=== PATIENT | female | born 1970 | race Caucasian/White ===

== ENCOUNTER → 2016-05-10 | Outpatient (CLI) | payer BC ==
[~2016-05-10] MED LIST: CHOL1000 PO; DICY10CA12 PO; FERR325T PO; IMT100 PO; LACTTAB5 PO; OMEP40CA41 PO; TOPI50TA16 PO; TPM/50 PO; VORT10TA12 PO; ZNTT/150 PO
[2016-05-10 19:37] LABS: INFLUENZA A PCR Neg for Influ A (NEG); INFLUENZA B PCR Neg for Influ B (NEG)
== END | disposition home or self-care (01) ==
LOC: C.LABBC 14:20
PROVIDERS: ATTEND Family Medicine
DX: Z00.00 Encounter for general adult medical examination without abnormal findings (principal); J02.9 Acute pharyngitis, unspecified

== ENCOUNTER → 2016-05-11 | Outpatient (CLI) | payer BC ==
[2016-05-11 12:03] LABS: HEMATOCRIT 39.5 % (37-47); MEAN CORPUSCULAR HEMOGLOBIN 32.1 pg (25-34); MEAN CORPUSCULAR HGB CONC 34.2 g/dl (32-36); MEAN PLATELET VOLUME 10.8 fL (7.4-10.4); PLATELET COUNT 267 K/uL (130-400); WHITE BLOOD COUNT 12.75 K/uL (4.8-10.8)
[2016-05-11 12:15] LABS: BLOOD UREA NITROGEN 18 mg/dl (7-18); BUN/CREATININE RATIO 18.3 (10-20); CALCIUM 8.8 mg/dl (8.5-10.1); CARBON DIOXIDE 27 mmol/L (21-32); CHLORIDE 104 mmol/L (98-107); CHOLESTEROL 181 mg/dl (0-200); GLUCOSE 87 mg/dl (70-99); POTASSIUM 3.6 mmol/L (3.5-5.1); SODIUM 138 mmol/L (136-145); TRIGLYCERIDES 55 mg/dl (0-150); VERY LOW DENSITY LIPOPROT CALC 11 mg/dl
[2016-05-11 12:25] LABS: CHOLESTEROL/HDL RATIO 2.6; HDL CHOLESTEROL 70 mg/dl; LDL CHOLESTEROL CALCULATED 100 mg/dl
[2016-05-11 15:42] LABS: BASO % 0.3 %; BASO ABS # 0.04 K/uL (0-0.2); COMPLETE YES; EOS % 0.6 %; IG% 0.3 %; LYMPH % 8.7 %; MONO % 5.4 %; NEUT % 84.7 %
== END | disposition home or self-care (01) ==
LOC: C.LAB1850 09:48
PROVIDERS: ATTEND Physician Assistant Medical
DX: Z00.00 Encounter for general adult medical examination without abnormal findings (principal); D64.9 Anemia, unspecified; R53.83 Other fatigue

== ENCOUNTER → 2016-06-09 | Outpatient (CLI) | payer BC ==
[~2016-06-09] MED LIST changes: +FERR1TAB62 PO; -FERR325T PO
[2016-06-09 16:46] LABS: BASO % 0.5 %; BASO ABS # 0.04 K/uL (0-0.2); COMPLETE YES; EOS % 2.6 %; HEMATOCRIT 35.8 % (37-47); IG% 0.1 %; LYMPH % 32.9 %; LYMPH ABS # 2.54 K/uL (1.2-3.4); MEAN CORPUSCULAR HEMOGLOBIN 31.8 pg (25-34); MEAN CORPUSCULAR HGB CONC 33.5 g/dl (32-36); MEAN PLATELET VOLUME 9.8 fL (7.4-10.4); MONO % 4.8 %; NEUT % 59.1 %; PLATELET COUNT 298 K/uL (130-400); RED BLOOD COUNT 3.77 M/uL (4.2-5.4); WHITE BLOOD COUNT 7.71 K/uL (4.8-10.8)
[2016-06-09 17:10] LABS: ALT/SGPT 18 U/L (12-78); AMYLASE 55 U/L (25-115); AST/SGOT 13 U/L (15-37); BLOOD UREA NITROGEN 17 mg/dl (7-18); BUN/CREATININE RATIO 15.7 (10-20); CALCIUM 8.7 mg/dl (8.5-10.1); CARBON DIOXIDE 34 mmol/L (21-32); CHLORIDE 104 mmol/L (98-107); GLUCOSE 82 mg/dl (70-99); SODIUM 139 mmol/L (136-145)
[2016-06-09 17:12] LABS: ALKALINE PHOSPHATASE 61 U/L (45-117)
== END | disposition home or self-care (01) ==
LOC: C.LAB1850 16:00
PROVIDERS: ATTEND Registered Nurse
DX: R63.0 Anorexia (principal)

== ENCOUNTER → 2016-06-11 | Outpatient (CLI) | payer BC ==
--- NOTE | 2016-06-11 07:53 | DIAGNOSTIC IMAGING REPORT ---
ABDOMINAL ULTRASOUND, RIGHT UPPER QUADRANT HISTORY: R10.13 Abdominal pain, [id number] Change in bowel [id number]. COMPARISON: None. FINDINGS: Pancreas: The pancreas demonstrates a normal echotexture. Liver: Unremarkable. Gallbladder: No gallbladder wall thickening. No gallstones. CBD: 5 mm. Right kidney: No hydronephrosis. IMPRESSION: No significant abnormality identified within the right upper quadrant. Electronically signed by: Brain Monroe M.D. 06/11/2016 7:52 AM Dictated Date/Time: 06/11/2016 7:51 AM
== END | disposition home or self-care (01) ==
LOC: C.ULTRBC 07:10
PROVIDERS: ATTEND Registered Nurse
DX: R63.0 Anorexia (principal); R14.0 Abdominal distension (gaseous); R19.4 Change in bowel habit; R10.13 Epigastric pain

== ENCOUNTER → 2016-08-18 | Outpatient (CLI) | payer BC ==
[~2016-08-18] MED LIST changes: -FERR1TAB62 PO; +FERR325T PO; +OPTIRAY 320 IV PRN
--- NOTE | 2016-08-18 14:17 | DIAGNOSTIC IMAGING REPORT ---
CT ABD/PELVIS IV AND ORAL CONT CLINICAL HISTORY: K21.9 Acid wcpffbB68.9 WbrbxlL53.13 Abdominal pain, epigastric pain COMPARISON STUDY: Biliary ultrasound dated 06/11/2016 TECHNIQUE: Following the IV administration of 92 mL of Optiray-320, CT scan of the abdomen and pelvis was performed from the lung bases to the proximal femurs. Images are reviewed in the axial, sagittal, and coronal planes. IV contrast was administered without complication. CT DOSE: 668.92 mGy.cm FINDINGS: Lower chest: The heart is normal in size and configuration, without pericardial effusion. The lung bases and pleural spaces are clear. Liver: The contrast-enhanced liver is normal in size, contour, and attenuation. There is no intrahepatic biliary ductal dilatation. The hepatic veins and portal veins are patent. Gallbladder: Unremarkable. Spleen: Normal in size and attenuation. Pancreas: Unremarkable. Adrenal glands: Unremarkable. Kidneys: There is a to small to characterize 4 mm left renal hypodensity, likely representing a cyst. There is no hydronephrosis. Bowel: There are no transition zones indicate bowel obstruction. There is mild fecal retention. There is no acute diverticulitis. There are no findings to indicate acute appendicitis. Peritoneum: There is no intraperitoneal free air or abdominal ascites. Vasculature: The abdominal aorta is normal in course and caliber. Adenopathy: None. Pelvic viscera: The bladder, and pelvic viscera are unremarkable. Skeletal structures: No destructive osseous lesions are seen. IMPRESSION: 1. No evidence of bowel obstruction. No evidence of free air 2. No acute inflammatory changes 3. No evidence of pathologic adenopathy Electronically signed by: Mac Chase M.D. 08/18/2016 2:15 PM Dictated Date/Time: 08/18/2016 2:10 PM
== END ==
LOC: C.CTS 13:11
PROVIDERS: ATTEND Physician Assistant Medical
DX: R10.13 Epigastric pain (principal); K21.9 Gastro-esophageal reflux disease without esophagitis; D64.9 Anemia, unspecified; R14.0 Abdominal distension (gaseous); R60.0 Localized edema

== ENCOUNTER → 2016-08-20 | Outpatient (CLI) | payer BC ==
[~2016-08-20] MED LIST changes: -OPTIRAY 320 IV PRN
--- NOTE | 2016-08-20 13:17 | DIAGNOSTIC IMAGING REPORT ---
LEFT VENOUS DOPP LOWER EXT UNILAT CLINICAL HISTORY: 46 years-old Female presenting with LEFT, LEG EDEMA R/O DVT. TECHNIQUE: Real-time grayscale and color and spectral Doppler ultrasound imaging of the left was performed. Compression and augmentation were also utilized. COMPARISON: Correlation made to CT of the abdomen and pelvis from 08/18/2016. FINDINGS: Left: Common femoral vein: Patent. Femoral vein: Patent. Greater saphenous vein: Patent. Popliteal vein: Patent. Catheter veins: Patent. Soft tissues of the left medial and lateral ankle demonstrate dilatation of the subcutaneous lymphatics. No focal fluid collection. IMPRESSION: 1. No evidence of deep venous thrombosis in the left lower extremity. 2. Edema of the subcutaneous tissue of the left ankle. Electronically signed by: Robby Agee 08/20/2016 1:16 PM Dictated Date/Time: 08/20/2016 1:13 PM
== END | disposition home or self-care (01) ==
LOC: C.ULTRBC 12:29
PROVIDERS: ATTEND Physician Assistant Medical
DX: R60.0 Localized edema (principal)

== ENCOUNTER → 2016-09-06 | Outpatient (CLI) | payer BC | END | disposition home or self-care (01) | LOC: C.PAPS 08:28 | PROVIDERS: ATTEND Obstetrics & Gynecology | DX: Z01.419 Encounter for gynecological examination (general) (routine) without abnormal findings (principal) ==

== ENCOUNTER → 2017-01-31 | Outpatient (CLI) | payer BC ==
[~2017-01-31] MED LIST changes: +FERR1TAB62 PO; -FERR325T PO
--- NOTE | 2017-01-31 16:28 | DIAGNOSTIC IMAGING REPORT ---
R HAND MIN 3 VIEWS ROUTINE CLINICAL HISTORY: 46 years-old Female presenting with ELEVATED SED RATE. TECHNIQUE: Frontal, oblique, and lateral views of the right hand were obtained. COMPARISON: Correlation made to plain radiographs of the left hand performed the same day. FINDINGS: No erosions. No acute fracture or malalignment. No radiographic soft tissue swelling. No degenerative change. No soft tissue calcification. No osteopenia. IMPRESSION: Normal radiographs of the right hand. Electronically signed by: Robby Agee M.D. 01/31/2017 4:27 PM Dictated Date/Time: 01/31/2017 4:26 PM
--- NOTE | 2017-01-31 16:30 | DIAGNOSTIC IMAGING REPORT ---
L HAND MIN 3 VIEWS ROUTINE CLINICAL HISTORY: 46 years-old Female presenting with ELEVATED SED RATE. TECHNIQUE: Frontal, oblique, and lateral views of the left hand were obtained. COMPARISON: Correlation made to plain radiographs of the right hand performed the same day. FINDINGS: No erosions. No acute fracture or malalignment. No osteopenia. No radiographic soft tissue abnormality. IMPRESSION: Normal radiographs of the left hand. Electronically signed by: Robby Agee M.D. 01/31/2017 4:28 PM Dictated Date/Time: 01/31/2017 4:27 PM
[2017-01-31 17:28] LABS: C-REACTIVE PROTEIN 0.58 mg/dl (0-0.29); RHEUMATOID FACTOR < 10.0 U/mL (0-15)
== END | disposition home or self-care (01) ==
LOC: C.RADBC 15:21
PROVIDERS: ATTEND Physician Assistant Medical
DX: R70.0 Elevated erythrocyte sedimentation rate (principal); M79.676 Pain in unspecified toe(s)

== ENCOUNTER → 2017-05-04 | Outpatient (CLI) | payer BC ==
[~2017-05-04] MED LIST changes: +BUTACAP7 PO; +CNC/36 PO; -FERR1TAB62 PO; -IMT100 PO; +LACT9000 PO; -LACTTAB5 PO; +LORA10CA2 PO; +MELO15TA10 PO; +METH750T PO; +NORT75CA PO; +PSEU120T2 PO; +RANI150T3 PO; +SUCR1TAB29 PO; -TOPI50TA16 PO; -TPM/50 PO; +TRMCR515 TOP; -VORT10TA12 PO; -ZNTT/150 PO
--- NOTE | 2017-05-04 11:11 | DIAGNOSTIC IMAGING REPORT ---
GI W/AIR SMALL BOWEL ROUTINE CLINICAL HISTORY: 46 years-old Female presenting with FOLLOW THRU-EPIGASTRIC ABD PAIN. TECHNIQUE: An abdominal estate manager radiograph was performed. A standard air contrast upper GI series was then performed. Spot images of the esophagus and stomach were obtained in multiple obliquities with upright and prone. The patient then consumed several of thin barium and a small follow-through was performed. Overhead radiographs and spot compression images were obtained. COMPARISON: CT from 08/18/2016. FINDINGS: The patient swallowed barium without difficulty. The esophagus is structurally normal without evidence of intrinsic or extrinsic mass. The esophageal mucosal pattern is normal. No gastroesophageal reflux was elicited by having the patient perform the Valsalva maneuver. The gastroesophageal junction distends normally. Questionable esophageal reflux with incomplete clearance of intraesophageal contents, however, this was in supine positioning. The stomach is normal in configuration and demonstrates normal distensibility. No mass or ulceration is identified. There was no evidence of gastritis. The duodenal bulb and sweep are unremarkable. The abdominal estate manager radiograph shows nonobstructive bowel gas pattern and no gross pneumoperitoneum. No calcifications project over the kidneys. Moderate stool burden consistent with constipation. Pelvic phleboliths noted. On the small bowel follow-through, there is normal transit time with contrast identified in the colon at 2 hours 45 minutes. The small bowel mucosal pattern is normal. There is no evidence of stricture or mass. The distal/terminal ileum are normal in appearance on the spot compression views. Fluoroscopy dosage (mGy): Not available. Fluoroscopy time: 2.5 minutes. Number of fluoroscopic spot images: 33. IMPRESSION: Normal fluoroscopic examination of the esophagus, stomach, and small bowel. Electronically signed by: Robby Agee M.D. 05/04/2017 11:09 AM Dictated Date/Time: 05/04/2017 11:07 AM
== END | disposition home or self-care (01) ==
LOC: C.RAD 07:28
PROVIDERS: ATTEND Internal Medicine
DX: R10.13 Epigastric pain (principal)

== ENCOUNTER → 2017-09-01 | Outpatient (CLI) | payer BC ==
--- NOTE | 2017-09-01 09:17 | DIAGNOSTIC IMAGING REPORT ---
(BARIUM SWALLOW) ESOPHAGUS CLINICAL HISTORY: Dysphagia. COMPARISON STUDY: Upper GI series and small bowel follow-through May 04, 2017. FLUOROSCOPY TIME: 1.2 minutes. FINDINGS: 23 fluoroscopic images were obtained. Esophageal motility was normal. No esophageal mass or stricture was identified. 13 mm barium tablet passed into the stomach. A small amount of gastroesophageal reflux was noted. IMPRESSION: 1. No esophageal mass or stricture identified. 13 mm barium tablet passed into the stomach. 2. Mild gastroesophageal reflux. Electronically signed by: David Fisher M.D. 09/01/2017 9:16 AM Dictated Date/Time: 09/01/2017 9:15 AM
== END | disposition home or self-care (01) ==
LOC: C.RAD 08:31
PROVIDERS: ATTEND Physician Assistant
DX: R13.10 Dysphagia, unspecified (principal)